=== PATIENT | male | born 1975 | race Hispanic/Latino ===

== ENCOUNTER 2023-04-14 17:50 | Emergency (ER) | payer OTHER ==
[~2023-04-14] VITALS: Ht 180.3 cm; Wt 75.7 kg
[2023-04-14] MEDS ORDERED: LACTATED RINGERS 1000ML 1,000 ML IV ONE (19:30)
[2023-04-14 19:40] LABS: BASOPHILS # (AUTO) 0.05 K/uL (0.00-0.20); BASOPHILS % (AUTO) 0.4 % (0.0-5.0); EOSINOPHILS # (AUTO) 0.03 K/uL (0.00-0.70); EOSINOPHILS % (AUTO) 0.2 % (0.0-8.0); HEMATOCRIT 51.5 % (42-54); IMMATURE GRANULOCYTE ABSOLUTE 0.06 K/uL (0-1); LYMPHOCYTES # (AUTO) 1.2 K/uL (1.0-4.8); LYMPHOCYTES % (AUTO) 8.7 % (21.0-51.0); MEAN CORPUSCULAR HEMOGLOBIN 28.9 pg (27.0-33.0); MEAN CORPUSCULAR HGB CONC 33.6 g/dL (32.0-36.0); MEAN CORPUSCULAR VOLUME 86.1 fL (79-99); MONOCYTES # (AUTO) 1.3 K/uL (0.1-1.0); MONOCYTES % (AUTO) 9.6 % (3.0-13.0); NEUTROPHILS % (AUTO) 80.7 % (40.0-77.0); PLATELET COUNT (AUTO) 287 K/uL (130-400); RED BLOOD CELL COUNT(AUTO) 5.98 MIL/uL (4.50-6.20); RED CELL DISTRIBUTION WIDTH 13.5 % (11.0-15.5); WHITE BLOOD COUNT (AUTO) 13.6 K/uL (4.8-10.8)
[2023-04-14 19:48] LABS: APPEARANCE,URINE CLEAR (CLEAR); BILIRUBIN,URINE NEGATIVE (NEGATIVE); COLOR,URINE YELLOW (YELLOW); GLUCOSE, URINE (UA) NEGATIVE (NEGATIVE); KETONES,URINE NEGATIVE (NEGATIVE); LEUKOCYTE ESTERASE ,URINE 25 Leu/uL (NEGATIVE); NITRATE,URINE NEGATIVE (NEGATIVE); PH,URINE 5.5 (5.0-8.0); PROTEIN,URINE 100 mg/dL (NEGATIVE); UROBILINOGEN,URINE 0.2 mg/dL (0.2-1.0)
[2023-04-14 19:49] LABS: ADD UA MICROSCOPIC YES
[2023-04-14 19:50] LABS: BACTERIA,URINE MOD /HPF (None Seen); MUCUS,URINE FEW LPF (None Seen); SQUAMOUS EPITHELIAL CELL,UR FEW /HPF (0-2)
[2023-04-14 19:51] LABS: CREATININE 1.4 mg/dL (0.5-1.5)
[2023-04-14] MEDS ORDERED: DICYCLOMINE 20MG (10MG/ML) AMP IM ONE (20:00)
[2023-04-14] MEDS ORDERED: ONDANSETRON 4MG INJ IVP ONE (20:00)
[2023-04-14 20:14] LABS: ALBUMIN 4.7 g/dL (3.5-5.0); BILIRUBIN,TOTAL 0.6 mg/dL (0.2-1.0); TOTAL PROTEIN, SERUM 9.2 g/dL (6.0-8.3)
[2023-04-14] MEDS ORDERED: CEFTRIAXONE 1G VIAL IVPB ONE (20:30)
[2023-04-14] MEDS ORDERED: LACTATED RINGERS 1000ML 2,259 ML IV ONE (20:30)
[2023-04-14] MEDS ORDERED: ONDA4TAB10 PO (23:32)
[2023-04-14] MEDS ORDERED: CEPH500B PO (23:37)
[2023-04-15 00:07] VITALS: BP 118/74; PULSE 81; RESP 18; O2SAT 98
== END 2023-04-15 00:31 | disposition home or self-care (01) ==
LOC: EDH 17:50
DX: M62.82 Rhabdomyolysis (principal); F12.10 Cannabis abuse, uncomplicated; R11.2 Nausea with vomiting, unspecified
CPT/HCPCS: 99285; 96365; 96366; 96361; 96375; 82550 ×2; 84484; 80053; 83690; 85025; 87088; 81001; 36415; 96372; J7120 ×2; J0696; J2405; J0500